=== PATIENT | female | born 1935 | race Caucasian/White ===

== ENCOUNTER → 2016-07-31 | Outpatient (CLI) | payer OTHER, MEDICARE ==
[~2016-07-31] MED LIST: ASPEC325 PO; CALCTAB5 PO; CETI10TA84 PO; CLB200 PO; CLC100 PO; CLTP PO; DIPH25CA37; HYDR-5688 PO; LEVO-217 PO; MULTTAB58 PO; NUTRCAP PO; OXYSR10 PO
--- NOTE | 2016-07-31 16:26 | MAMMOGRAPHY REPORT ---
BILATERAL DIGITAL SCREENING MAMMOGRAM WITH CAD: 07/31/2016 CLINICAL HISTORY: Routine screening. Patient has no complaints. TECHNIQUE: Current study was also evaluated with a Computer Aided Detection (CAD) system. Bilatera l CC and MLO views were obtained. COMPARISON: Comparison is made to exams dated: 07/28/2015 mammogram, 07/31/2014 ultrasound, 07/31/2014 mammogram, 07/27/2014 mammogram, 07/21/2013 mammogram, and 07/18/2012 mammogram - [facility]. BREAST COMPOSITION: There are scattered areas of fibroglandular density in both breasts. FINDINGS: No suspicious masses, calcifications, or areas of architectural distortion are noted in e ither breast. There has been no significant interval change compared to prior exams. IMPRESSION: ACR BI-RADS CATEGORY 1: NEGATIVE There is no mammographic evidence of malignancy. A 1 year screening mammogram is recommended. The p atient will receive written notification of the results. Approximately 10% of breast cancers are not detected with mammography. A negative mammographic repor t should not delay biopsy if a clinically suggestive mass is present. Lucy Malloy M.D. /:07/31/2016 15:24:06 Assistant Therapy Aide: Aissatou Gonzalez, [facility] letter sent: Normal 1/2 BI-RADS Code: ACR BI-RADS Category 1: Negative
== END | disposition home or self-care (01) ==
LOC: C.MAMM 12:54
PROVIDERS: ATTEND Family Medicine
DX: Z12.31 Encounter for screening mammogram for malignant neoplasm of breast (principal)

== ENCOUNTER 2017-04-17 10:15 | Inpatient (IN) | payer OTHER, MEDICARE ==
[~2017-04-17] VITALS: Ht 167.6 cm; Wt 89.4 kg
[2017-04-17] MEDS ORDERED: NITROGLYCERIN OINT 2% 1GM PACKET EXT ONE (10:45)
--- NOTE | 2017-04-17 10:54 | DIAGNOSTIC IMAGING REPORT ---
CHEST ONE VIEW PORTABLE CLINICAL HISTORY: Chest pain and cough COMPARISON STUDY: 05/21/2015 FINDINGS: The cardiac and mediastinal contours remain stable. There is linear left lower lobe atelectasis/scarring. There is no failure. There are no selective pleural effusions.[ IMPRESSION: No active disease in the chest. Electronically signed by: Nahun Freeman M.D. 04/17/2017 10:53 AM Dictated Date/Time: 04/17/2017 10:52 AM
[2017-04-17 10:55] LABS: BASO % 0.2 %; BASO ABS # 0.02 K/uL (0-0.2); COMPLETE YES; EOS % 0.7 %; HEMATOCRIT 42.7 % (37-47); IG% 0.4 %; LYMPH % 18.3 %; LYMPH ABS # 2.09 K/uL (1.2-3.4); MEAN CELL VOLUME 94.5 fL (80-100); MEAN CORPUSCULAR HEMOGLOBIN 31.6 pg (25-34); MEAN CORPUSCULAR HGB CONC 33.5 g/dl (32-36); MEAN PLATELET VOLUME 8.9 fL (7.4-10.4); NEUT % 70.4 %; PLATELET COUNT 193 K/uL (130-400); RED BLOOD COUNT 4.52 M/uL (4.2-5.4); WHITE BLOOD COUNT 11.43 K/uL (4.8-10.8)
[2017-04-17 11:05] LABS: PARTIAL THROMBOPLASTIN RATIO 0.9; PROTHROMBIN TIME (PATIENT) 10.2 SECONDS (9.0-12.0)
[2017-04-17 11:18] LABS: BUN/CREATININE RATIO 19.2 (10-20); CREATININE 0.87 mg/dl (0.60-1.20); POTASSIUM 3.7 mmol/L (3.5-5.1)
[2017-04-17] MEDS ORDERED: ACET-1311 PO (11:30)
[2017-04-17] MEDS ORDERED: CALC500C70 PO (11:30)
[2017-04-17] MEDS ORDERED: OPTIRAY 320 IV PRN (11:30)
[2017-04-17] MEDS ORDERED: CALCTAB5 (11:30)
[2017-04-17] MEDS ORDERED: LEVO25TA5 PO (11:31)
--- NOTE | 2017-04-17 11:55 | DIAGNOSTIC IMAGING REPORT ---
CT ANGIOGRAM OF THE CHEST CLINICAL HISTORY: Atypical chest pain. Back pain. Possible pulmonary embolism. Cough. COMPARISON STUDY: Chest x-ray dated 04/17/2017 TECHNIQUE: Following the IV administration of 72 mL of Optiray-320, CT angiogram of the thorax was performed from the thoracic inlet to the lung bases utilizing the pulmonary embolus protocol. Images are reviewed in the axial, sagittal, and coronal planes. IV contrast was administered without complication. MIP imaging was performed. A dose lowering technique was utilized adhering to the principles of ALARA. CT DOSE: 405.03 mGy.cm FINDINGS: Within the upper abdomen, there are several water attenuation hepatic lesions likely representing cysts. No pathologically enlarged axillary mediastinal or hilar lymph nodes were visualized. There was no evidence of thoracic aortic dilatation. There is a saddle pulmonary embolism. There is evidence for mild right ventricular strain. There is a large thrombus burden within the right lower lobe pulmonary artery branches. Filling defects are also visualized within the right middle lobe, right upper lobe, and left upper lobe pulmonary artery branches. There are trace bilateral pleural effusions There is no focal pulmonary consolidation. IMPRESSION: 1. Acute saddle pulmonary embolism. This finding was called to Dr. Tatum at 10:49 AM. 2. Trace bilateral pleural effusions Electronically signed by: Nahun Freeman M.D. 04/17/2017 11:53 AM Dictated Date/Time: 04/17/2017 11:48 AM
[2017-04-17] MEDS ORDERED: HEPARIN 25000 UNIT/500 ML D5W ONE (12:22)
[2017-04-17] MEDS ORDERED: HEPARIN SOD 5000 UNIT/0.5 ML CARP ONE (12:23)
[2017-04-17] MEDS ORDERED: MAGNESIUM HYDROXIDE SUSP 30 ML UDC PO PRN (13:00)
[2017-04-17] MEDS ORDERED: ONDANSETRON INJ 2 MG/ML 2 ML VIAL IV PRN (13:00)
[2017-04-17] MEDS ORDERED: ACETAMINOPHEN 325 MG TAB PO PRN ×2 (13:00)
[2017-04-17] MEDS ORDERED: CETIRIZINE HCL 10 MG TAB PO PRN (13:00)
[2017-04-17] MEDS ORDERED: POLYETHYLENE (MIRALAX) 17 GM PACK PO PRN (13:00)
[2017-04-17] MEDS ORDERED: ALUMINUM/MAGNESIUM/SIMETH (MAALOX MAX) 30 ML UDC PO PRN (13:00)
[2017-04-17 13:39] VITALS: Ht 167.6 cm; Wt 89.4 kg
--- NOTE | 2017-04-17 14:44 | History and Physical ---
History & Physical Date & Time of Service: Apr 17, 2017 at 14:10 Chief Complaint: Back Pain, Need More Testing Done Per 's Office Primary Care Physician: Elton Horton M.D. History of Present Illness Source: patient, family, parent, partner 81F with a PMHx of hip surgery, knee surgery and hypothyroidism p/w sharp chest pain on deep inspiration starting this AM. Pt has been feeling acutely unwell ( lethargic, diaphoretic and dyspneic) for the past few days and has been tired for the past 5-6 weeks. Pt also had a sharp chest pain a few days ago similar to todays pain that resolved on her own. Pt has never had pain like this before. Pt was also recently treated for cold symptoms with Amoxicillin which upset her stomach, pt stopped taking Amoxicillin after 5 days. Upon exam pt is resting comfortably in bed and states that her chest pain has resolved. He is on 2L via NC. ROS: +chills at night x few weeks, no fevers, no recent weight loss, denies any recent long trips, denies any long periods of immobility, denies any trauma to her extremities, reports chronic bilateral calf pain. Aside from chest ' nothing else hurts'. No cough, no hemoptysis, no bright red blood per rectum. Colonoscopy 2 years ago, also had a recent mammogram. No change in bowel movements. No vomiting. PMHx: Saw a manager client service for preop clearance, thinks she might have had an echocardiogram a long time ago. FMHx: Mom had blood clots and had to put a filter in. +'ve family history for breast and colon cancer. PSHx: hip surgery 5 years ago, knee surgery two years ago. Meds: Synthroid, daily baby ASA, stopped estrogen medication 2+ years ago. SHx: Never smoker, lives w . Past Medical/Surgical History Medical Problems: (1) Hypothyroidism Status: Chronic Social History Smoking Status: Never Smoker Marital Status: Housing status: lives with family Immunizations History of Influenza Vaccine: No Influenza Vaccine Date: Apr 21, 2012 History of Tetanus Vaccine?: Yes Tetanus Immunization Date: Apr 18, 2010 History of Pneumococcal: Yes Pneumococcal Date: Apr 18, 2005 History of Hepatitis B Vaccine: No Multi-Drug Resistant Organisms History of MDRO: No Allergies Coded Allergies: Amitriptyline (Verified Allergy, Unknown, FLUSHING, SWEATING, breasts swollen, 04/17/17) Statins (Verified Allergy, Unknown, myalgias, 04/17/17) Valacyclovir (Verified Allergy, Unknown, myalgias, 04/17/17) Gabapentin (Verified Adverse Reaction, Unknown, fatigue;leg swelling and vision changes, 04/17/17) Home Medications Scheduled Aspirin (Aspirin), 325 MG PO BID Calcium/Vitamin D (Os-Aj 500 Plus D), 1 TAB PO DAILY Celecoxib (Celebrex), 200 MG PO BID Levothyroxine Sodium (Levothyroxine Sodium), 1 TAB PO DAILY Multiple Vitamin (Multivitamin), 1 TAB PO DAILY Nutritional Supplements (Antioxidant Formula), 1 CAP PO DAILY Scheduled PRN Cetirizine (Zyrtec), 5-10 MG PO HS PRN for PRN Miscellaneous Medications Acetaminophen (Tylenol), 325 MG PO Calcium Carbonate (Caltrate 600) Review of Systems Constitutional: + chills, + sweats, + fatigue, No fever, No weight loss, No weakness ENT: No hearing loss Respiratory: + shortness of breath, + dyspnea on exertion, No cough, No sputum , No wheezing, No hemoptysis Abdomen: No pain, No nausea, No vomiting, No diarrhea, No constipation, No GI bleeding Musculoskeletal: No joint pain Genitourinary - Female: No dysuria Neurologic: No memory loss, No numbness/tingling Psychiatric: No depression symptoms Physical Exam Vital Signs Date Time Temp Pulse Resp B/P (MAP) Pulse Ox O2 Delivery O2 Flow Rate FiO2 04/17/17 13:39 Nasal Cannula 2.0 04/17/17 13:13 77 16 165/100 97 Nasal Cannula 2.0 04/17/17 13:04 71 04/17/17 12:33 75 16 191/97 04/17/17 11:14 81 16 159/109 95 Room Air 04/17/17 10:28 89 04/17/17 10: 36.6 114 18 177/93 99 Room Air Partial Rebreather General Appearance: WD/WN, no apparent distress, + obese, + pertinent finding ( pt is on 2LNC) Head: normocephalic Eyes: normal inspection, PERRL Neck: supple Respiratory/Chest: chest non-tender, lungs clear, normal breath sounds, no respiratory distress, no accessory muscle use Cardiovascular: regular rate, rhythm, no gallop, no JVD, no murmur, normal peripheral pulses Abdomen/GI: normal bowel sounds, non tender, soft, no organomegaly Back: normal inspection, no CVA tenderness Extremities/Musculoskelatal: + calf tenderness (bilateral) Neurologic/Psych: micro lab analyst II-XII nml as tested, no motor/sensory deficits, alert, normal mood/affect, oriented x 3 Skin: no rash Diagnostics Laboratory Results Results Past 24 Hours Test 04/17/17 10:43 04/17/17 10:47 Range/Units White Blood Count 11.43 4.8-10.8 K/uL Red Blood Count 4.52 4.2-5.4 M/uL Hemoglobin 14.3 12.0-16.0 g/dL Hematocrit 42.7 37-47 % Mean Corpuscular Volume 94.5 80-100 fL Mean Corpuscular Hemoglobin 31.6 25-34 pg Mean Corpuscular Hemoglobin Concent 33.5 32-36 g/dl Platelet Count 193 130-400 K/uL Mean Platelet Volume 8.9 7.4-10.4 fL Neutrophils (%) (Auto) 70.4 % Lymphocytes (%) (Auto) 18.3 % Monocytes (%) (Auto) 10.0 % Eosinophils (%) (Auto) 0.7 % Basophils (%) (Auto) 0.2 % Neutrophils # (Auto) 8.05 1.4-6.5 K/uL Lymphocytes # (Auto) 2.09 1.2-3.4 K/uL Monocytes # (Auto) 1.14 0.11-0.59 K/uL Eosinophils # (Auto) 0.08 0-0.5 K/uL Basophils # (Auto) 0.02 0-0.2 K/uL RDW Standard Deviation 55.8 36.4-46.3 fL RDW Coefficient of Variation 16.0 11.5-14.5 % Immature Granulocyte % (Auto) 0.4 % Immature Granulocyte # (Auto) 0.05 0.00-0.02 K/uL Prothrombin Time 10.2 9.0-12.0 SECONDS Prothromb Time International Ratio 1.0 0.9-1.1 Activated Partial Thromboplast Time 24.6 21.0-31.0 SECONDS Partial Thromboplastin Ratio 0.9 Sodium Level 141 136-145 mmol/L Potassium Level 3.7 3.5-5.1 mmol/L Chloride Level 109 98-107 mmol/L Carbon Dioxide Level 26 21-32 mmol/L Anion Gap 6.0 3-11 mmol/L Blood Urea Nitrogen 17 7-18 mg/dl Creatinine 0.87 0.60-1.20 mg/dl Est Creatinine Clear Calc Drug Dose 59.2 ml/min Estimated GFR () 73.4 Estimated GFR (Non- 63.4 BUN/Creatinine Ratio 19.2 10-20 Random Glucose 97 70-99 mg/dl Calcium Level 9.0 8.5-10.1 mg/dl Bedside Troponin I 0.040 0-0.045 ng/ml Microbiology Results 04/17/17 Blood Culture, Received Pending Diagnostic Radiology CT ANGIOGRAM OF THE CHEST CLINICAL HISTORY: Atypical chest pain. Back pain. Possible pulmonary embolism. Cough. COMPARISON STUDY: Chest x-ray dated 04/17/2017 TECHNIQUE: Following the IV administration of 72 mL of Optiray-320, CT angiogram of the thorax was performed from the thoracic inlet to the lung bases utilizing the pulmonary embolus protocol. Images are reviewed in the axial, sagittal, and coronal planes. IV contrast was administered without complication. MIP imaging was performed. A dose lowering technique was utilized adhering to the principles of ALARA. CT DOSE: 405.03 mGy.cm FINDINGS: Within the upper abdomen, there are several water attenuation hepatic lesions likely representing cysts. No pathologically enlarged axillary mediastinal or hilar lymph nodes were visualized. There was no evidence of thoracic aortic dilatation. There is a saddle pulmonary embolism. There is evidence for mild right ventricular strain. There is a large thrombus burden within the right lower lobe pulmonary artery branches. Filling defects are also visualized within the right middle lobe, right upper lobe, and left upper lobe pulmonary artery branches. There are trace bilateral pleural effusions There is no focal pulmonary consolidation. IMPRESSION: 1. Acute saddle pulmonary embolism. This finding was called to Dr. Tatum at 10:49 AM. 2. Trace bilateral pleural effusions CHEST ONE VIEW PORTABLE CLINICAL HISTORY: Chest pain and cough COMPARISON STUDY: 05/21/2015 FINDINGS: The cardiac and mediastinal contours remain stable. There is linear left lower lobe atelectasis/scarring. There is no failure. There are no selective pleural effusions.[ IMPRESSION: No active disease in the chest. EKG Normal sinus rhythm Possible Inferior infarct , age undetermined Cannot rule out Anterior infarct (cited on or before 18-FEB-2013) Abnormal ECG When compared with ECG of 21-MAY-2015 09:27, Nonspecific T wave abnormality, improved in Anterior leads Confirmed by ROBBIE MINOR ([id number]) on 04/17/2017 11:16:39 AM Impression Assessment and Plan 81F with PMHX of hypothyroidism with no recent surgeries p/w chest pain and was found to have a saddle embolis on CT Scan. Pt was started on a Heparin Drip and admitted to tele. VS are stable and Cardiopulmonary exam is grossly normal. Pt is at present on 2LNC. Aside from a FamHx of mother having blood clots and an IVC filter in place, this appears to be an unprovoked DVT. Pt has had a recent colonoscopy and mammogram, is a non smoker and has no systemic complaints except for recent chills. Neuro: * AAOx3 * Pt is not presently in any pain. * Pain control with Tylenol 650mg PO Q6H PRN. CV - * Chest pain has resolved, likely pleuritic 2/2 to PE. * Does not see a manager client service regularly. Post Op cardiology consult in 2012 for palpitations, no acute findings were found. * Last echo was in 2002 which was grossly normal. * EKG showed no acute pathology. * Trop was 0.04, after discussion with Attending we will not trend unless pain returns. * HTN: Pt has no h/o HTN, BP in the ER was high, 165/100, will continue to monitor, likely a stress response. * Continue ASA 81mg daily. Resp - * Acute saddle pulmonary embolism * Pt is saturating 98% on 2LNC. Has tender calves bilaterally. * Heparin Drip. * In my assessment pt is hemodynamically stable, no indicated for clot busting meds or thrombectomy. * Will monitor on tele. * Consider Echo if there is a concern for right heart strain. * Pt will need to be discharged on 3-6 months of AC. * Consider outpatient hypercoagulable studies. * Saw a consult for Thoracic Surgery by Dr. Madden, will cancel. * Allergies: c/w Cetirizine. Renal/ - * Creatinine is WNL. GI/Diet - * Regular Diet. Endo - * Hypothyroidism: Will continue home Synthroid dose of 25mcg daily. Will check TSH tomorrow AM. * HBA1C of 6.3 in 2011, BS of 97 on BMP * Electrolytes: Na+ 141 K+ 3.7 * Will check Mag and Phos in the AM. * Vit D Deficiency: Continue daily ca2+/Vit D combo med. Heme - * Hgb 14, Platelets 193 WNL. * DVT Proph: On Hep Drip. ID - * Afebrile, WBC - 11,000. * WBC is likely reactive, we will hold on ABx. MSK - * Out of bed as tolerated. * PT and OT on board. Social - Home AC regimen, appears to have good support, depending on PT and OT either DC to home or rehab. Dispo - Tele Full Code - Pt however does not want prolonged mechanical ventilation for an irreversible neurological process. Resident Physician Supervision Note: I interviewed and examined the patient. Discussed with Dr. Ledesma and agree with findings and plan as documented in the note. Any exceptions or clarifications are listed here: None Documented By: Balta Parks back pain. breathing OK. no other new complaints - HPI and ROS otherwise as above vitals noted nad breathing unlabored lungs clear no r/r/w good effort saddle embolus - ?venous stasis and fam hx clotting. stable. heparin --> likely NOAC. stable, otherwise as above Advanced Directives Existing Living Will: No Existing Power of Technical Support 1 Software Engineer: No Resident Involvement: Resident Care Provided Care Provided: Adult Hospital Medicine
[2017-04-17 16:00] VITALS: O2SAT 95
[2017-04-17 16:10] VITALS: BP 96/65; PULSE 77; TEMP 36.6; O2SAT 96
--- NOTE | 2017-04-17 16:17 | EMERGENCY ROOM VISIT NOTE ---
History Report prepared by Des: Roxanna Acuña Under the Supervision of: Dr. Phu Tatum M.D. First contact with patient: 10:28 Chief Complaint: BACK PAIN Stated Complaint: BACK PAIN, NEED MORE TESTING DONE PER 'S OFFICE History of Present Illness The patient is a 81 year old female who presents to the Emergency Room with complaints of an episode of chest pain beginning this morning at 7am when she woke up. The patient reports chest tightness and pain in her back. She rates her pain as a 5/10 in severity. Her pain is worsened with deep inspiration. She became diaphoretic with her pain and developed a headache as well. She still has some tightness in her chest and mid-upper back, but states that her symptoms have improved. The patient had a similar episode 3 days ago. She was not evaluated at that time and her symptoms resolved on their own. The patient states that she has been sick for the past 5 weeks with cold symptoms. She notes headaches, cough, and rhinorrhea. She saw her PCP for these symptoms last week and was placed on amoxicillin. The patient took this antibiotic for 5 days and stopped it because she developed a rash and thought that she was having a reaction to the medication. The patient denies fevers, vomiting, swelling to extremities, and any recent trauma or injury. She denies any recent surgery or immobilization. She has no pain in her legs other than some chronic issues due to her knee problems. She denies any significant cardiac history. Source of History: patient Onset: 7am Position: chest Symptom Intensity: 5/10 Quality: other (tightness) Timing: other (episode) Modifying Factors (Worsening): breathing (deep inspiration) Associated Symptoms: + headache, + diaphoresis, + cough, + back pain, No fevers, No vomiting Review of Systems See HPI for pertinent positives & negatives. A total of 10 systems reviewed and were otherwise negative. Past Medical & Surgical Medical Problems: (1) Hypothyroidism (2) Saddle embolism of pulmonary artery Surgical Problems: (1) S/P TKR (total knee replacement) Family History Non-pertinent due to advanced age. Social History Smoking Status: Never Smoker Smokeless Tobacco Use: No Alcohol Use: none Marital Status: Housing Status: lives with significant other Current/Historical Medications Scheduled Aspirin (Aspirin), 325 MG PO BID Calcium/Vitamin D (Os-Aj 500 Plus D), 1 TAB PO DAILY Celecoxib (Celebrex), 200 MG PO BID Levothyroxine Sodium (Levothyroxine Sodium), 1 TAB PO DAILY Multiple Vitamin (Multivitamin), 1 TAB PO DAILY Nutritional Supplements (Antioxidant Formula), 1 CAP PO DAILY Scheduled PRN Cetirizine (Zyrtec), 5-10 MG PO HS PRN for PRN Miscellaneous Medications Acetaminophen (Tylenol), 325 MG PO Calcium Carbonate (Caltrate 600) Allergies Coded Allergies: Amitriptyline (Verified Allergy, Unknown, FLUSHING, SWEATING, breasts swollen, 04/17/17) Statins (Verified Allergy, Unknown, myalgias, 04/17/17) Valacyclovir (Verified Allergy, Unknown, myalgias, 04/17/17) Gabapentin (Verified Adverse Reaction, Unknown, fatigue;leg swelling and vision changes, 04/17/17) Physical Exam Vital Signs Date Time Temp Pulse Resp B/P (MAP) Pulse Ox O2 Delivery O2 Flow Rate FiO2 04/17/17 14:40 70 16 161/94 95 Nasal Cannula 2.0 04/17/17 13:39 Nasal Cannula 2.0 04/17/17 13:13 77 16 165/100 97 Nasal Cannula 2.0 04/17/17 13:04 71 04/17/17 12:33 75 16 191/97 04/17/17 11:14 81 16 159/109 95 Room Air 04/17/17 10:28 89 04/17/17 10: 36.6 114 18 177/93 99 Room Air Partial Rebreather Physical Exam Constitutional: Vital signs reviewed. Eyes: Pupils are equal round reactive to light. Conjunctiva are noninjected. ENT: Pharynx is clear without erythema or exudate. Mucous membranes are moist. Neck supple without meningeal signs. Respiratory: Clear to auscultation bilaterally. Breath sounds are equal bilaterally. Cardiovascular: Regular rate and rhythm. No rubs or gallops. GI: Soft, nondistended and nontender. Bowel sounds are present. Musculoskeletal: No peripheral edema. No lower extremity tenderness. Integumentary: No cyanosis. Neurological: The patient is awake and alert. No focal deficits. Psychiatric: Normal affect. Medical Decision & Procedures ER Provider Diagnostic Interpretation: Radiology results as stated below per my review and the radiologist's interpretation: CHEST ONE VIEW PORTABLE CLINICAL HISTORY: Chest pain and cough COMPARISON STUDY: 05/21/2015 FINDINGS: The cardiac and mediastinal contours remain stable. There is linear left lower lobe atelectasis/scarring. There is no failure. There are no selective pleural effusions.[ IMPRESSION: No active disease in the chest. Electronically signed by: Nahun Freeman M.D. 04/17/2017 10:53 AM Dictated Date/Time: 04/17/2017 10:[address] ANGIOGRAM OF THE CHEST CLINICAL HISTORY: Atypical chest pain. Back pain. Possible pulmonary embolism. Cough. COMPARISON STUDY: Chest x-ray dated 04/17/2017 TECHNIQUE: Following the IV administration of 72 mL of Optiray-320, CT angiogram of the thorax was performed from the thoracic inlet to the lung bases utilizing the pulmonary embolus protocol. Images are reviewed in the axial, sagittal, and coronal planes. IV contrast was administered without complication. MIP imaging was performed. A dose lowering technique was utilized adhering to the principles of ALARA. CT DOSE: 405.03 mGy.cm FINDINGS: Within the upper abdomen, there are several water attenuation hepatic lesions likely representing cysts. No pathologically enlarged axillary mediastinal or hilar lymph nodes were visualized. There was no evidence of thoracic aortic dilatation. There is a saddle pulmonary embolism. There is evidence for mild right ventricular strain. There is a large thrombus burden within the right lower lobe pulmonary artery branches. Filling defects are also visualized within the right middle lobe, right upper lobe, and left upper lobe pulmonary artery branches. There are trace bilateral pleural effusions There is no focal pulmonary consolidation. IMPRESSION: 1. Acute saddle pulmonary embolism. This finding was called to Dr. Tatum at 10:49 AM. 2. Trace bilateral pleural effusions Electronically signed by: Nahun Freeman M.D. 04/17/2017 11:53 AM Dictated Date/Time: 04/17/2017 11:48 AM Laboratory Results 04/17/17 10:43 Red Blood Count 4.52, Mean Corpuscular Volume 94.5, Mean Corpuscular Hemoglobin 31.6, Mean Corpuscular Hemoglobin Concent 33.5, Mean Platelet Volume 8.9, Neutrophils (%) (Auto) 70.4, Lymphocytes (%) (Auto) 18.3, Monocytes (%) (Auto) 10.0, Eosinophils (%) (Auto) 0.7, Basophils (%) (Auto) 0.2, Neutrophils # (Auto ) 8.05, Lymphocytes # (Auto) 2.09, Monocytes # (Auto) 1.14, Eosinophils # (Auto ) 0.08, Basophils # (Auto) 0.02 04/17/17 10:43 Test 04/17/17 10:43 04/17/17 10:47 White Blood Count 11.43 K/uL (4.8-10.8) Red Blood Count 4.52 M/uL (4.2-5.4) Hemoglobin 14.3 g/dL (12.0-16.0) Hematocrit 42.7 % (37-47) Mean Corpuscular Volume 94.5 fL (80-100) Mean Corpuscular Hemoglobin 31.6 pg (25-34) Mean Corpuscular Hemoglobin Concent 33.5 g/dl (32-36) Platelet Count 193 K/uL (130-400) Mean Platelet Volume 8.9 fL (7.4-10.4) Neutrophils (%) (Auto) 70.4 % Lymphocytes (%) (Auto) 18.3 % Monocytes (%) (Auto) 10.0 % Eosinophils (%) (Auto) 0.7 % Basophils (%) (Auto) 0.2 % Neutrophils # (Auto) 8.05 K/uL (1.4-6.5) Lymphocytes # (Auto) 2.09 K/uL (1.2-3.4) Monocytes # (Auto) 1.14 K/uL (0.11-0.59) Eosinophils # (Auto) 0.08 K/uL (0-0.5) Basophils # (Auto) 0.02 K/uL (0-0.2) RDW Standard Deviation 55.8 fL (36.4-46.3) RDW Coefficient of Variation 16.0 % (11.5-14.5) Immature Granulocyte % (Auto) 0.4 % Immature Granulocyte # (Auto) 0.05 K/uL (0.00-0.02) Prothrombin Time 10.2 SECONDS (9.0-12.0) Prothromb Time International Ratio 1.0 (0.9-1.1) Activated Partial Thromboplast Time 24.6 SECONDS (21.0-31.0) Partial Thromboplastin Ratio 0.9 Anion Gap 6.0 mmol/L (3-11) Est Creatinine Clear Calc Drug Dose 59.2 ml/min Estimated GFR () 73.4 Estimated GFR (Non- 63.4 BUN/Creatinine Ratio 19.2 (10-20) Calcium Level 9.0 mg/dl (8.5-10.1) Bedside Troponin I 0.040 ng/ml (0-0.045) Laboratory results as reviewed by me. Medications Administered Medications (Trade) Dose Ordered Sig/Mallory Route Start Time Stop Time Status Last Admin Dose Admin Nitroglycerin (Nitroglycerin 2% Oint) 0.5 inch NOW ONCE EXT 04/17/17 10:45 04/17/17 10:46 DC 04/17/17 10:56 0.5 INCH Heparin Sodium/ Dextrose (Heparin 25,000 Unit/500ml D5W) 25,000 unit STK-MED ONCE .ROUTE 04/17/17 12:22 04/17/17 12:23 DC 04/17/17 12:22 25,000 UNIT Heparin Sodium (Porcine) (Heparin Sq 5000 Unit/0.5ml) 10,000 unit STK-MED ONCE .ROUTE 04/17/17 12:23 04/17/17 12:24 DC 04/17/17 12:30 6,000 UNIT ECG Indication: chest pain Rate (beats per minute): 82 Rhythm: normal sinus Findings: Q waves (leads 3 and AVF), no ectopy ED Course 1028: The patient was evaluated in room A11B. A complete history and physical exam was performed. 1045: Nitroglycerin 0.5 inch EXT 1119: Upon reevaluation the patient's chest pain has improved slightly. She agreed to a CT scan of her chest. 1150: I spoke with Dr. Freeman, the radiologist regarding the patient's CT results. 1152: I updated the patient on the results of her chest CT. She is still complaining of slight chest discomfort. I discussed the risks of anticoagulation with the patient. She denies any history of GI bleeding. She is complaining of a headache from the nitro, so I removed the nitro. 1157: I discussed the case with Dr. Borja of cardiothoracic surgery. He spoke with the electron beam machine welder setter and Dr. Pagan of pulmonology and called me back. They agreed to keep the patient in the ICU and recommended heparin and not TPA. 1209: I reassessed the patient at this time. I discussed the results and treatment plan with the patient. I answered all pertaining questions that she had. She expressed understanding and verbalized agreement. 1212: Heparin Sodium/Dextrose 1214: I spoke with Dr. Parks. We discussed the patient's case. The patient will be evaluated by the [facility] for further management. 1303: I checked on the patient. Her vital signs are stable and she is getting heparin. Medical Decision This is a 81-year-old female who presents with chest pain and back pain. Differential diagnosis includes unstable angina, UT, GERD, pneumonia, pulmonary embolism. I did perform a limited focused review of portions of the patient's old chart on the electronic medical record. The patient has had no recent pertinent visits to this hospital. I did evaluate the patient as noted above. The patient is presenting with chest tightness which started this morning. She has no similar episode 2 days ago which resolved on its on. She was diaphoretic when it occurred with some shortness of breath. She is currently having some mild chest pain. She also complains of pain in her back which she states is worse when she takes deep breath. She has had that for about a week. IV access was established. The patient was placed on a continuous radiation monitor. Her blood pressure is significantly elevated. I did treat the patient with nitroglycerin paste. I did order and personally review the patient's 12-lead EKG and chest x-ray as described above. I did order and review the patient's blood work as noted in the electronic medical record. Her troponin is negative. I did reassess the patient. She has some very slight improvement of her chest pain but continues to have the tightness as well as pain in her back. I was concerned about the possibility of pulmonary embolism and so I did discuss getting a CT with her. I did order a CT of the chest. I did review the images myself as well as the radiology report as described above. The patient does have a saddle embolism. I did discuss the test results with the patient. I did discuss the case with Dr. Borja. He did speak to the ICU doctor and tool supervisor. They felt that the patient could be managed in the ICU and did not require transfer. He recommended IV heparin. I did start patient on IV heparin after discussing risks and benefits with her. I did discuss case with Dr. Parks. The patient was admitted to the ICU. Medication Reconcilliation Current Medication List: was personally reviewed by me Blood Pressure Screening Patient's blood pressure: Elevated blood pressure Blood pressure disposition: Referred to PCP Consults Time Called: 1150 Consulting Physician: Dr. Freeman Returned Call: [address] Freeman, the radiologist regarding the patient's CT results. Additional Consults: Time Called: 1155 Consulted Physician: Dr. Borja Returned Call: 1157 Additional Comments: I discussed the case with Dr. Borja of cardiothoracic surgery. He spoke with the electron beam machine welder setter and Dr. Pagan of pulmonology and called me back. They agreed to keep the patient in the ICU and recommended heparin and not TPA. Time Called: 1211 Consulted Physician: Dr. Parks Returned Call: 1214 Additional Comments: I spoke with Dr. Parks. We discussed the patients case. The patient will be evaluated by the [facility] for further management. Impression Primary Impression: Saddle embolus Critical Care I have personally spent 35 minutes of critical care time in the direct management of this patient. This includes bedside care, interpretation of diagnostic studies, and testing, discussion with consultants, patient, and family members, and other required patient management activities. This 35 minutes is in excess of all separately billable procedures. Scribe Attestation The scribe's documentation has been prepared under my direct and personally reviewed by me in its entirety. I confirm that the note above accurately reflects all work, treatment, procedures, and medical decision making performed by me. Departure Information Dispostion Being Evaluated By Hospitalist Elton Garcia M.D. (PCP) Patient Instructions My [facility]
[2017-04-17 17:30] VITALS: BP 139/84; PULSE 88
[2017-04-17] MEDS: HEPARIN 25,000 UNIT/500ML D5W 500 ML IV PRN (17:33)
[2017-04-17 18:58] LABS: PARTIAL THROMBOPLASTIN RATIO 2.1
[2017-04-17 19:30] VITALS: BP 155/90; PULSE 67; TEMP 36.7; O2SAT 95
[2017-04-17 20:00] VITALS: O2SAT 96
[2017-04-17] MEDS ORDERED: ASPIRIN 325 MG ECTAB PO SCH (21:00)
[2017-04-17] MEDS: ACETAMINOPHEN 325 MG TAB PO PRN (21:09)
[2017-04-17 23:42] VITALS: BP 146/86; PULSE 67; TEMP 37.1; O2SAT 95
[2017-04-18] VITALS (8 sets, daily range): BP systolic 133–151; BP diastolic 83–90; PULSE 64–95; TEMP 36.6–37.6; O2SAT 92–98
[2017-04-18 06:07] LABS: HEMATOCRIT 41.4 % (37-47); MEAN CELL VOLUME 94.7 fL (80-100); MEAN CORPUSCULAR HEMOGLOBIN 31.8 pg (25-34); MEAN CORPUSCULAR HGB CONC 33.6 g/dl (32-36); MEAN PLATELET VOLUME 8.9 fL (7.4-10.4); PLATELET COUNT 187 K/uL (130-400); RED BLOOD COUNT 4.37 M/uL (4.2-5.4); WHITE BLOOD COUNT 10.46 K/uL (4.8-10.8)
[2017-04-18 06:32] LABS: BUN/CREATININE RATIO 20.4 (10-20); CALCIUM 8.6 mg/dl (8.5-10.1); CREATININE 0.66 mg/dl (0.60-1.20); POTASSIUM 3.8 mmol/L (3.5-5.1)
[2017-04-18] MEDS: LEVOTHYROXINE 25 MCG TAB PO SCH (06:32)
[2017-04-18 06:35] LABS: PARTIAL THROMBOPLASTIN RATIO 3.7
[2017-04-18] MEDS: CALCIUM 600MG + VIT D 400 IU TAB PO SCH (08:38)
[2017-04-18] MEDS: MULTIVITAMIN TAB PO SCH (08:38)
[2017-04-18] MEDS: ASPIRIN 81 MG ECTAB PO SCH (08:39)
[2017-04-18] MEDS ORDERED: NUTRITIONAL SUPPLEMENTS PO SCH (09:00)
[2017-04-18] MEDS: HEPARIN 25,000 UNIT/500ML D5W 500 ML IV PRN (09:18)
[2017-04-18] MEDS: SODIUM CHLORIDE 0.9% 1000ML 1,000 ML IV SCH (14:10)
[2017-04-18 14:38] LABS: PARTIAL THROMBOPLASTIN RATIO 2.1
--- NOTE | 2017-04-18 14:46 | Hospitalist Progress Note ---
Hospitalist Progress Note Date of Service Apr 18, 2017. (Yana Mak ., DAISY) Subjective Pt evaluation today including: conversation w/ patient, physical exam, chart review, lab review, review of inpatient medication list Ms. Ashford is in good spirits. She feels some sob but is comfortable with 2L NC while sitting in bed. Her chest pain has largely resolved. ROS Constitutional: no chills, aches, sweats or fever Respiratory: no sob,cough, sputum, or wheezing Cardiac: no chest pain, palpitations, edema, orthopnea or lightheadedness GI: no abdominal pain, nausea, vomiting, diarrhea or constipation : no dysuria or hesitancy Extremities: no joint pain or weakness Skin: no rash (Yana Mak CRNP) Medications Medications Administered Medications (Trade) Dose Ordered Sig/Mallory Route Start Time Stop Time Status Last Admin Dose Admin Nitroglycerin (Nitroglycerin 2% Oint) 0.5 inch NOW ONCE EXT 04/17/17 10:45 04/17/17 10:46 DC 04/17/17 10:56 0.5 INCH Heparin Sodium/ Dextrose (Heparin 25,000 Unit/500ml D5W) 25,000 unit STK-MED ONCE .ROUTE 04/17/17 12:22 04/17/17 12:23 DC 04/17/17 12:22 25,000 UNIT Heparin Sodium (Porcine) (Heparin Sq 5000 Unit/0.5ml) 10,000 unit STK-MED ONCE .ROUTE 04/17/17 12:23 04/17/17 12:24 DC 04/17/17 12:30 6,000 UNIT Calcium/Vitamin D (Caltrate Plus Tab) 1 tab DAILY PO 04/18/17 09:00 05/18/17 08:59 04/18/17 08:38 1 TAB Levothyroxine Sodium (Synthroid Tab) 25 mcg DAILYBB PO 04/18/17 06:00 05/18/17 06:59 04/18/17 06:32 25 MCG Multivitamins (Multivitamin Tab) 1 tab DAILY PO 04/18/17 09:00 05/18/17 08:59 04/18/17 08:38 1 TAB Aspirin (Ecotrin Tab) 81 mg QAM PO 04/18/17 09:00 05/18/17 08:59 04/18/17 08:39 81 MG Heparin Sodium/ Dextrose 500 ml @ 23 mls/hr [id number] PRN IV 04/17/17 17:15 05/17/17 17:14 04/18/17 09:18 23 MLS/HR Acetaminophen (Tylenol Tab) 650 mg Q4H PRN PO 04/17/17 20:30 05/17/17 20:29 04/17/17 21:09 650 MG Sodium Chloride 1,000 ml @ 75 mls/hr [id number] IV 04/18/17 14:15 05/18/17 14:14 04/18/17 14:10 75 MLS/HR (Yana Mak, DAISY) Objective Vital Signs Date Time Temp Pulse Resp B/P (MAP) Pulse Ox O2 Delivery O2 Flow Rate FiO2 04/18/17 12:00 Nasal Cannula 2.0 04/18/17 10:46 37.3 73 18 144/83 (103) 95 Room Air 04/18/17 08:20 36.8 85 16 139/85 (103) 97 Nasal Cannula 2.0 04/18/17 08:00 Nasal Cannula 2.0 04/18/17 04:01 36.6 64 16 151/86 (107) 98 Nasal Cannula 1.5 04/18/17 04:00 Nasal Cannula 2.0 04/17/17 23:59 Nasal Cannula 2.0 04/17/17 23:42 37.1 67 18 146/86 (106) 95 Nasal Cannula 1.5 04/17/17 20:00 96 Nasal Cannula 2.0 04/17/17 19:30 36.7 67 18 155/90 (111) 95 Nasal Cannula 2.0 04/17/17 17:30 88 139/84 (102) 04/17/17 16:10 36.6 77 17 96/65 (75) 96 Nasal Cannula 2.0 04/17/17 16:00 95 Nasal Cannula 2.0 04/17/17 14:40 70 16 161/94 95 Nasal Cannula 2.0 (Yana Mak, SUPPORT SPECIALIST) Physical Exam Notes: General: no distress Eyes: normal inspection, PERLL Respiratory: chest non tender, clear to auscultation, normal breath sounds, no respiratory distress, no accessory muscle use Cardiac: regular rate and rhythm, no rub or gallop, no murmur, no edema, no jvd GI/: active bowel sounds, no abd pain or tenderness, soft, non distended Extremities: normal range of motion, normal strength, non tender Neuro/Psych: alert and oriented x 3, normal mood and affect Skin: normal color, dry (Yana Mak CRNP) Laboratory Results Last 24 Hours Test 04/17/17 18:29 04/18/17 05:52 04/18/17 14:09 Activated Partial Thromboplast Time 54.1 SECONDS 95.9 SECONDS Partial Thromboplastin Ratio 2.1 3.7 White Blood Count 10.46 K/uL Red Blood Count 4.37 M/uL Hemoglobin 13.9 g/dL Hematocrit 41.4 % Mean Corpuscular Volume 94.7 fL Mean Corpuscular Hemoglobin 31.8 pg Mean Corpuscular Hemoglobin Concent 33.6 g/dl RDW Standard Deviation 54.5 fL RDW Coefficient of Variation 15.7 % Platelet Count 187 K/uL Mean Platelet Volume 8.9 fL Sodium Level 141 mmol/L Potassium Level 3.8 mmol/L Chloride Level 110 mmol/L Carbon Dioxide Level 26 mmol/L Anion Gap 5.0 mmol/L Blood Urea Nitrogen 13 mg/dl Creatinine 0.66 mg/dl Est Creatinine Clear Calc Drug Dose 77.8 ml/min Estimated GFR () 97.4 Estimated GFR (Non- 84.0 BUN/Creatinine Ratio 20.4 Random Glucose 97 mg/dl Calcium Level 8.6 mg/dl Troponin I < 0.015 ng/ml (Yana Mak CRNP) Assessment and Plan 81F with PMHX of hypothyroidism with no recent surgeries p/w chest pain and was found to have a saddle embolis on CT Scan. Pt was started on a Heparin Drip and admitted to [facility]. VS are stable and cardiopulmonary exam is grossly normal. Pt is at present on 2LNC. Aside from a FamHx of mother having blood clots and an IVC filter in place, and son with post surgery DVTs, this appears to be an unprovoked DVT. Pt has had a recent colonoscopy and mammogram, is a non smoker and has no systemic complaints except for recent chills. Saddle Embolus: - Echo - Heparin infusion - no indication for thrombolytics at this time - titrate O2 - monitor on telemetry - outpatient hypercoagulable studies Chest Pain: - Chest pain has resolved, likely pleuritic 2/2 to PE. - EKG showed no acute pathology. - Trop was 0.04 - Continue ASA 81mg daily. Seasonal allergies - continue cetirizine Hypothyroidism: - continue home Synthroid dose of 25mcg daily. DVT prophylaxis - heparin drip Full Code - Pt however does not want prolonged mechanical ventilation for an irreversible neurological process. (Yana Mak ., DAISY) Attending Attestation: Pt seen/examined, chart reviewed, care plan d/w SUPPORT SPECIALISTGRACE Mak. I agree w/ the soto components of her documentation. Pt w/o any major complaints except for cramps in legs, worse on left. This is a chronic issue but was MUCH worse in the last 2 weeks. This was about the time she developed pleuritic chest pain, back pain, and dyspnea. Traveled to [place] about 4 weeks ago. Symptoms began 2 weeks ago. Mother, son, and daughter - all w/ blood clots. VSS afebrile gen - nad heart - mildly tachy, s1, s2 lungs - CTA b/l abd - soft, NT ext - left leg is much larger than right leg, no palpable cords, no edema, pulses 2+ b/l A/P: extensive VTE event with numerous right-sided PEs and saddle embolus. likely had embolic events over 2-week period hence her stability. risk factors - probable genetic factor, possible travel (to [place]); cannot exclude underlying malignancy (occult). continue heparin. spoke with Dr. Cervantes from coumadin clinic - preference is likely lovenox bridge w/ coumadin at discharge. will start coumadin today - 5mg x 1 with daily coags. hold on hypercoagulable w/u - will not cell changer. suspect she may need lifelong coumadin. dopplers of legs ordered. echo pending. due to tachycardia and preload dependency start NS at 75cc/hr. watch 1 more night on tele - if stable - then med/surg tomorrow daughter updated Darrel PACHECO MD (Vishal Pacheco MD)
[2017-04-18] MEDS ORDERED: WARFARIN SOD 5 MG TAB PO ONE (18:45)
--- NOTE | 2017-04-18 19:26 | ECHOCARDIOGRAM REPORT ---
*NOTICE TO RECEIVING LIBERTARIAN AGENCY This information is strictly Confidential and protected under [place] law. [place] law prohibits you from making any further disclosure of this information unless further disclosure is expressly permitted by the written consent of the person to whom it pertains or is authorized by law. A general authorization for the release of medical or other information is not sufficient for this purpose. Hospital accepts no responsibility if the information is made available to any other person, INCLUDING THE PATIENT. Interpretation Summary * Name: MARISELA WILKINSON Study Date: 04/18/2017 03:28 PM BP: 134/89 mmHg * Patient Location: C.2T\S\S241\S\2 HR: 86 * : 1935 (M/d/yyyy) Gender: Female Height: 66 in * Age: 81 yrs Ethnicity: CA Weight: 197 lb * Ordering Physician: Vishal Pacheco * Referring Physician: Elton Horton * Performed By: Lilliana Escobar RDCS * * BSA: 2.0 m2 * -- Conclusions -- * 1. Normal left ventricular size and systolic function. EF 55-60%. No regional wall motion abnormalities. Mild concentric left ventricular hypertrophy. Type 1 diastolic dysfunction. * 2. No significant valvular abnormalities visualized. * 3. Normal estimated right ventricular systolic pressure. * 4. No prior study available for comparison. Procedure Details * A complete two-dimensional transthoracic echocardiogram was performed (2D, M-mode, Doppler and color flow Doppler). Left Ventricle * Normal left ventricular size and systolic function. EF 55-60%. No regional wall motion abnormalities. Mild concentric left ventricular hypertrophy. Type 1 diastolic dysfunction. Right Ventricle * The right ventricle is normal in size and function. Atria * The left atrial size is normal. * Right atrial size is normal. * There is no evidence of atrial septal defect, but resolution does not allow assessment for a patent foramen ovale. Mitral Valve * The mitral valve is grossly normal. * There is no mitral valve stenosis. * There is trace mitral regurgitation. Tricuspid Valve * The tricuspid valve is not well visualized, but is grossly normal. * There is no tricuspid stenosis. * There is trace tricuspid regurgitation. Aortic Valve * The aortic valve is trileaflet. * No hemodynamically significant valvular aortic stenosis. * No aortic regurgitation is present. Pulmonic Valve * The pulmonary valve is inadequately visualized, but the Doppler data is adequate for interpretation. * There is no pulmonic valvular stenosis. * There is no significant pulmonary regurgitation. Great Vessels * The aortic root is normal size. Pericardium/Pleural * There is no pericardial effusion. Great Vessels * Normal inferior vena cava size and collapsability with sniff indicates a normal right atrial pressure of 3 mmHg MMode 2D Measurements and Calculations IVSd 1.3 cm IVSs 1.9 cm LVIDd 4.1 cm LVIDs 2.8 cm LVPWd 1.3 cm LVPWs 1.9 cm IVS/LVPW 1.0 FS 32.6 % EDV(Teich) 73.7 ml ESV(Teich) 28.4 ml EF(Teich) 61.5 % EDV(cubed) 68.4 ml ESV(cubed) 20.9 ml EF(cubed) 69.4 % % IVS thick 39.7 % % LVPW thick 42.9 % LV mass(C)d 197.9 grams LV mass(C)dI 99.6 grams/m\S\2 LV mass(C)s 211.0 grams LV mass(C)sI 106.2 grams/m\S\2 SV(Teich) 45.3 ml SI(Teich) 22.8 ml/m\S\2 SV(cubed) 47.4 ml SI(cubed) 23.9 ml/m\S\2 Ao root diam 3.3 cm Ao root area 8.5 cm\S\2 LA dimension 3.3 cm LA/Ao 1.0 LVAd ap4 29.2 cm\S\2 LVLd ap4 7.9 cm EDV(MOD-sp4) 89.7 ml EDV(sp4-el) 92.0 ml LVAs ap4 17.6 cm\S\2 LVLs ap4 6.7 cm ESV(MOD-sp4) 40.6 ml ESV(sp4-el) 39.1 ml EF(MOD-sp4) 54.7 % EF(sp4-el) 57.5 % LVAd ap2 24.0 cm\S\2 LVLd ap2 7.4 cm EDV(MOD-sp2) 67.1 ml EDV(sp2-el) 65.9 ml LVAs ap2 14.6 cm\S\2 LVLs ap2 6.4 cm ESV(MOD-sp2) 29.8 ml ESV(sp2-el) 28.3 ml EF(MOD-sp2) 55.5 % EF(sp2-el) 57.0 % LVLd %diff -3.58 % EDV(MOD-bp) 79.8 ml LVLs %diff -3.40 % ESV(MOD-bp) 33.2 ml EF(MOD-bp) 58.4 % SV(MOD-sp4) 49.1 ml SI(MOD-sp4) 24.7 ml/m\S\2 SV(MOD-sp2) 37.2 ml SI(MOD-sp2) 18.7 ml/m\S\2 SV(MOD-bp) 46.6 ml SI(MOD-bp) 23.5 ml/m\S\2 SV(sp4-el) 52.9 ml SI(sp4-el) 26.6 ml/m\S\2 SV(sp2-el) 37.5 ml SI(sp2-el) 18.9 ml/m\S\2 Doppler Measurements and Calculations MV E max sarai 67.9 cm/sec MV A max sarai 99.0 cm/sec MV E/A 0.69 MV dec time 0.17 sec Ao V2 max 138.7 cm/sec Ao max PG 7.7 mmHg Ao max PG (full) 3.3 mmHg LV V1 max PG 4.4 mmHg LV V1 max 104.3 cm/sec TR max sarai 230.8 cm/sec RVSP(TR) 24.3 mmHg RAP systole 3.0 mmHg
--- NOTE | 2017-04-18 21:55 | DIAGNOSTIC IMAGING REPORT ---
VENOUS DOPPLER LWR EXT BILA HISTORY: Dyspnea saddle PE, eval for DVT COMPARISON STUDY: 09/29/2014 FINDINGS: Acute deep venous thrombosis within the left common femoral vein, popliteal vein, as well as peroneal veins. No significant thrombus within the right leg. IMPRESSION: Acute deep venous thrombosis in the left leg from common femoral vein through the small venous structures of the lower leg The above report was generated using voice recognition software. It may contain grammatical, syntax or spelling errors. Electronically signed by: Josh Villanueva M.D. 04/18/2017 9:54 PM Dictated Date/Time: 04/18/2017 9:52 PM
[2017-04-19] MEDS: SODIUM CHLORIDE 0.9% 1000ML 1,000 ML IV SCH (03:17)
[2017-04-19 04:00] VITALS: BP 146/87; PULSE 89; TEMP 36.7; O2SAT 91
[2017-04-19] MEDS: LEVOTHYROXINE 25 MCG TAB PO SCH (05:27)
[2017-04-19] MEDS: HEPARIN 25,000 UNIT/500ML D5W 500 ML IV PRN (05:27)
[2017-04-19 05:47] LABS: HEMATOCRIT 38.8 % (37-47); MEAN CELL VOLUME 94.9 fL (80-100); MEAN CORPUSCULAR HEMOGLOBIN 31.8 pg (25-34); MEAN CORPUSCULAR HGB CONC 33.5 g/dl (32-36); MEAN PLATELET VOLUME 9.2 fL (7.4-10.4); PLATELET COUNT 214 K/uL (130-400); RED BLOOD COUNT 4.09 M/uL (4.2-5.4); WHITE BLOOD COUNT 11.03 K/uL (4.8-10.8)
[2017-04-19 06:15] LABS: PARTIAL THROMBOPLASTIN RATIO 2.2
[2017-04-19 06:18] LABS: BUN/CREATININE RATIO 18.5 (10-20); CALCIUM 8.2 mg/dl (8.5-10.1); CREATININE 0.64 mg/dl (0.60-1.20); POTASSIUM 3.7 mmol/L (3.5-5.1)
[2017-04-19 07:35] VITALS: BP 136/86; PULSE 80; TEMP 37; O2SAT 92
[2017-04-19] MEDS: ACETAMINOPHEN 325 MG TAB PO PRN (07:56)
[2017-04-19] MEDS: ASPIRIN 81 MG ECTAB PO SCH (07:57)
[2017-04-19] MEDS: CALCIUM 600MG + VIT D 400 IU TAB PO SCH (07:58)
[2017-04-19] MEDS: MULTIVITAMIN TAB PO SCH (07:58)
[2017-04-19] MEDS ORDERED: ENOXAPARIN 1 MG/KG SQ SCH (09:15)
--- NOTE | 2017-04-19 10:08 | Hospitalist Progress Note ---
Hospitalist Progress Note Date of Service Apr 19, 2017. (Yana Mak .DAISY) Subjective Pt evaluation today including: conversation w/ patient, physical exam, chart review, lab review, review of studies, review of inpatient medication list Ms. Ashford is feeling better today. She is off of oxygen and has not had dyspnea at rest or while moving around the room. She occasionally has very mild pain under her right breast. ROS Constitutional: no chills, aches, sweats or fever Respiratory: no sob,cough, sputum, or wheezing Cardiac: no chest pain, palpitations, edema, orthopnea or lightheadedness GI: no abdominal pain, nausea, vomiting, diarrhea or constipation : no dysuria or hesitancy Extremities: no joint pain or weakness Skin: no rash All Other Systems: Reviewed and Negative (Yana Mak .DAISY) Medications Medications Administered Medications (Trade) Dose Ordered Sig/Mallory Route Start Time Stop Time Status Last Admin Dose Admin Nitroglycerin (Nitroglycerin 2% Oint) 0.5 inch NOW ONCE EXT 04/17/17 10:45 04/17/17 10:46 DC 04/17/17 10:56 0.5 INCH Heparin Sodium/ Dextrose (Heparin 25,000 Unit/500ml D5W) 25,000 unit STK-MED ONCE .ROUTE 04/17/17 12:22 04/17/17 12:23 DC 04/17/17 12:22 25,000 UNIT Heparin Sodium (Porcine) (Heparin Sq 5000 Unit/0.5ml) 10,000 unit STK-MED ONCE .ROUTE 04/17/17 12:23 04/17/17 12:24 DC 04/17/17 12:30 6,000 UNIT Calcium/Vitamin D (Caltrate Plus Tab) 1 tab DAILY PO 04/18/17 09:00 05/18/17 08:59 04/19/17 07:58 1 TAB Levothyroxine Sodium (Synthroid Tab) 25 mcg DAILYBB PO 04/18/17 06:00 05/18/17 06:59 04/19/17 05:27 25 MCG Multivitamins (Multivitamin Tab) 1 tab DAILY PO 04/18/17 09:00 05/18/17 08:59 04/19/17 07:58 1 TAB Aspirin (Ecotrin Tab) 81 mg QAM PO 04/18/17 09:00 05/18/17 08:59 04/19/17 07:57 81 MG Heparin Sodium/ Dextrose 500 ml @ 23 mls/hr [id number] PRN IV 04/17/17 17:15 04/19/17 09:15 DC 04/19/17 05:27 23 MLS/HR Acetaminophen (Tylenol Tab) 650 mg Q4H PRN PO 04/17/17 20:30 05/17/17 20:29 04/19/17 07:56 650 MG Sodium Chloride 1,000 ml @ 75 mls/hr [id number] IV 04/18/17 14:15 04/19/17 09:15 DC 04/19/17 03:17 75 MLS/HR Warfarin Sodium (Coumadin Tab) 5 mg NOW ONCE PO 04/18/17 18:45 04/18/17 18:46 DC 04/18/17 19:42 5 MG (Yana Mak CRNP) Objective Vital Signs Date Time Temp Pulse Resp B/P (MAP) Pulse Ox O2 Delivery O2 Flow Rate FiO2 04/19/17 07:35 37.0 80 20 136/86 (103) 92 Room Air 04/19/17 04:00 36.7 89 18 146/87 (106) 91 Room Air 04/19/17 04:00 Room Air 04/18/17 23:59 Room Air 04/18/17 23:47 37.2 85 19 133/85 (101) 94 Room Air 04/18/17 20:00 94 Room Air 04/18/17 18:57 37.0 95 18 141/90 (107) 92 Room Air 04/18/17 16:00 93 Room Air 04/18/17 15:26 37.6 86 19 134/89 (104) 92 Room Air 04/18/17 12:00 Nasal Cannula 2.0 04/18/17 10:46 37.3 73 18 144/83 (103) 95 Room Air (Yana Mak CRNP) Physical Exam Notes: General: no distress Eyes: normal inspection, PERLL Respiratory: chest non tender, clear to auscultation, normal breath sounds, no respiratory distress, no accessory muscle use Cardiac: regular rate and rhythm, no rub or gallop, no murmur, no edema, no jvd GI/: active bowel sounds, no abd pain or tenderness, soft, non distended Extremities: normal range of motion, normal strength, non tender Neuro/Psych: alert and oriented x 3, normal mood and affect Skin: normal color, dry (Yana Mak, DAISY) Laboratory Results Last 24 Hours Test 04/18/17 14:09 04/19/17 05:22 Activated Partial Thromboplast Time 53.9 SECONDS 58.3 SECONDS Partial Thromboplastin Ratio 2.1 2.2 White Blood Count 11.03 K/uL Red Blood Count 4.09 M/uL Hemoglobin 13.0 g/dL Hematocrit 38.8 % Mean Corpuscular Volume 94.9 fL Mean Corpuscular Hemoglobin 31.8 pg Mean Corpuscular Hemoglobin Concent 33.5 g/dl RDW Standard Deviation 54.0 fL RDW Coefficient of Variation 15.7 % Platelet Count 214 K/uL Mean Platelet Volume 9.2 fL Sodium Level 143 mmol/L Potassium Level 3.7 mmol/L Chloride Level 112 mmol/L Carbon Dioxide Level 23 mmol/L Anion Gap 8.0 mmol/L Blood Urea Nitrogen 12 mg/dl Creatinine 0.64 mg/dl Est Creatinine Clear Calc Drug Dose 80.2 ml/min Estimated GFR () 98.4 Estimated GFR (Non- 84.9 BUN/Creatinine Ratio 18.5 Random Glucose 104 mg/dl Calcium Level 8.2 mg/dl (Yana Mak CRNP) Assessment and Plan 81F with PMHX of hypothyroidism with no recent surgeries p/w chest pain and was found to have a saddle embolis on CT Scan. Pt was started on a Heparin Drip and admitted to [facility]. VS are stable and cardiopulmonary exam is grossly normal. Pt is at present on 2LNC. Aside from a FamHx of mother having blood clots and an IVC filter in place, and son with post surgery DVTs, this appears to be an unprovoked DVT. Pt has had a recent colonoscopy and mammogram, is a non smoker and has no systemic complaints except for recent chills. Saddle Embolus: - Echo - Heparin infusion discontinued - changed to lovenox bridge with coumadin , lovenox teaching ordered - titrate O2 - patient on room air - transfer of telemetry to medical floor - NSR on the monitor, Echo did not show right heart strain - outpatient hypercoagulable studies Chest Pain: - Chest pain has resolved, likely pleuritic 2/2 to PE. - EKG showed no acute pathology. - Trop was 0.04 - Continue ASA 81mg daily. Seasonal allergies - continue cetirizine Hypothyroidism: - continue home Synthroid dose of 25mcg daily. DVT prophylaxis - enoxaparin Full Code - Pt however does not want prolonged mechanical ventilation for an irreversible neurological process. (Yana Mak ., DAISY) Attending Attestation: Pt seen/examined, chart reviewed, care plan d/w CERTIFIED REGISTERED DENTAL ASSISTANTGRACE Mak. I agree w/ the soto components of her documentation. Pt w/o dyspnea or other complaints today. Feels well. VSS afebrile o2 sats wnl in RA gen - nad heart - RRR, s1, s2, no murmur lungs - CTA b/l abd - soft, NT ext - left leg is larger than right leg, no edema, pulses 2+ b/l A/P: extensive VTE event with numerous right-sided PEs, saddle embolus, the extensive LLE DVT. RLE neg for DVT. likely had embolic events over 2-week period hence her stability. risk factors - probable genetic factor, possible travel (to [place]); cannot exclude underlying malignancy (occult). has been transitioned to lovenox 1mg/kg SC q12h and daily coumadin 5mg. lovenox teaching. daily INR. coumadin clinic follow-up after d/c. suspect she may need lifelong coumadin. anticipate d/c tomorrow if she is comfortable with lovenox injections updated they confirm they can afford $73 copay for the 7-day supply of lovenox Darrel PACHECO MD (Vishal Pacheco MD)
[2017-04-19] MEDS: ENOXAPARIN 100 MG/1ML SYR SQ SCH ×2 (11:09→21:49)
[2017-04-19 11:33] VITALS: BP 129/70; PULSE 88; TEMP 36.9; O2SAT 97
[2017-04-19 12:05] VITALS: BP 129/70; PULSE 88; TEMP 36.9; O2SAT 97
[2017-04-19 15:42] VITALS: BP 150/82; PULSE 76; TEMP 36.6; O2SAT 95
[2017-04-19 16:00] VITALS: O2SAT 95
[2017-04-19] MEDS ORDERED: WARFARIN SOD 5 MG TAB PO SCH (16:00)
[2017-04-20 00:47] VITALS: BP 133/83; PULSE 89; TEMP 37.2; O2SAT 92
[2017-04-20] MEDS: LEVOTHYROXINE 25 MCG TAB PO SCH (05:43)
[2017-04-20 06:00] LABS: HEMATOCRIT 38.6 % (37-47); MEAN CELL VOLUME 94.8 fL (80-100); MEAN CORPUSCULAR HEMOGLOBIN 31.2 pg (25-34); MEAN CORPUSCULAR HGB CONC 32.9 g/dl (32-36); PLATELET COUNT 230 K/uL (130-400); RED BLOOD COUNT 4.07 M/uL (4.2-5.4); WHITE BLOOD COUNT 10.35 K/uL (4.8-10.8)
[2017-04-20 06:05] LABS: PROTHROMBIN TIME (PATIENT) 10.9 SECONDS (9.0-12.0)
[2017-04-20 06:33] LABS: BUN/CREATININE RATIO 21.5 (10-20); CALCIUM 8.6 mg/dl (8.5-10.1); CREATININE 0.62 mg/dl (0.60-1.20)
[2017-04-20 07:32] VITALS: BP 137/87; PULSE 80; TEMP 36.7; O2SAT 94
[2017-04-20 08:00] VITALS: O2SAT 94
[2017-04-20] MEDS: MULTIVITAMIN TAB PO SCH (08:04)
[2017-04-20] MEDS: CALCIUM 600MG + VIT D 400 IU TAB PO SCH (08:04)
[2017-04-20] MEDS: ASPIRIN 81 MG ECTAB PO SCH (08:04)
[2017-04-20] MEDS: ENOXAPARIN 100 MG/1ML SYR SQ SCH (08:05)
[2017-04-20] MEDS ORDERED: SODIUM CHLORIDE 0.65% NA SOLN 45 ML (OCEAN) ONE (08:09)
[2017-04-20] MEDS ORDERED: NURSING DECISION MEDICATION ORDER SCH (08:15)
[2017-04-20] MEDS ORDERED: SODIUM CHLORIDE 0.65% NA SOLN 45 ML (OCEAN) PRN (08:30)
[2017-04-20] MEDS ORDERED: WARFARIN SOD 5 MG TAB PO ONE ×2 (09:30→10:00)
[2017-04-20] MEDS ORDERED: LVNIS100 SQ ×2 (10:21→10:36)
[2017-04-20] MEDS ORDERED: CMD5 PO (10:21)
--- NOTE | 2017-04-20 10:35 | Discharge Instructions ---
Discharge Instructions Date of Service Apr 20, 2017. Admission Reason for Admission: Saddle Embolism Of Pulmonary Artery Discharge Discharge Diagnosis / Problem: (1) Saddle embolism of pulmonary artery VTE Date & Time Date of VTE Diagnosis: Apr 17, 2017 Time of VTE Diagnosis: 11:22 Discharge Goals Goal(s): Improve disease control Activity Recommendations Activity Limitations: resume your previous activity . Instructions / Follow-Up Instructions / Follow-Up Please come to the hospital Sunday and Sunday for INR blood work, Dr. Pacheco will monitor your blood work and change Coumadin dosing if necessary Medication Instructions: * Warfarin is a medicine prescribed to prevent blood clots * Warfarin will thin your blood and help prevent new clots * Take your medications exactly as directed * Never skip a dose. Never take a double dose. If you miss a dose, take it as soon as you remember * It is important for your doctor to monitor your prothrombin time (PT). This is a lab test * Keep your appointment for lab tests Risk of Adverse Drug Reactions and Interactions: * Warfarin increases your risk of bleeding * The food you eat and other medications you take can affect how Warfarin works in your body * Ask your doctor about daily aspirin therapy * It is very important to talk with your doctor about all of the other medicines , antibiotics, vitamins or herbal products that you are taking * All of your medication must be approved by your doctor, including new medicines, as well as medicines you have taken before you started taking Warfarin Diet: * In order for Warfarin to work properly, it is important to keep your intake of Vitamin K as consistent as possible * You should avoid any sudden change in Vitamin K intake * Report any significant changes in your diet or weight to your doctor Call your Primary Care doctor if you experience any of the following: * Swelling or Pain in your leg * Sudden, continuous pain deep in a muscle * Pain that worsens when you are active or when you stand still for a long time * Chest Pain * Sudden Shortness of Breath * Rapid or pounding heart beat * Fainting * Dizziness * Cough with blood or bloody sputum * Sweating more than normal * Bruises * Heavy or uncontrolled bleeding * Blood in your urine, stool or vomit * Black or tarry stools Caring for Your Self at Home: * Avoid sitting, standing or lying down for long periods without moving your legs and feet * When traveling by car, stop to get out and move around at least once every 3 hours * On long airplane, train or bus rides, get up and move around when possible * If you can't get up, wiggle your toes and tighten your calves to keep your blood moving Follow Up: It is important for you to keep your follow up appointments with your medical provider. Current Hospital Diet Patient's current hospital diet: Regular Diet Discharge Diet Recommended Diet: Regular Diet Procedures Procedures Performed: Chest Xray Chest CT Lower extremity venous doppler Pending Studies Studies pending at discharge: no Medical Emergencies . Who to Call and When: Medical Emergencies: If at any time you feel your situation is an emergency, please call 911 immediately. . Non-Emergent Contact Non-Emergency issues call your: Primary Care Provider Call Non-Emergent contact if: you have any medication questions . Past History Medical & Surgical History: (1) Saddle embolus . "Provider Documentation" section prepared by Yana Mak. . VTE Core Measure Inpt VTE Proph given/why not?: Enoxaparin (Lovenox)SQ Reason no anticoag overlap I/P: Treatment provided - N/A Reason no anticoag overlap @DC: Treatment provided - N/A
[2017-04-20 11:14] VITALS: BP 137/87; PULSE 80; TEMP 36.7; O2SAT 94
--- NOTE | 2017-04-20 15:16 | Discharge Summary ---
Discharge Summary Date of Service Apr 20, 2017. (Yana Mak CRNP) Discharge Summary Admission Date: Apr 17, 2017 at 15:01 Discharge Date: Apr 20, 2017 Discharge Disposition: Home Principal Diagnosis: saddle embolism Problems/Secondary Diagnoses: Chest pain Hypothyroidism Seasonal allergies Immunizations: Have You Had Influenza Vaccine: No Influenza Vaccine Date: Apr 21, 2012 History of Tetanus Vaccine?: Yes Tetanus Immunization Date: Apr 18, 2010 History of Pneumococcal: Yes Pneumococcal Date: Apr 18, 2005 History of Hepatitis B Vaccine: No Procedures: Chest CTA IMPRESSION: 1. Acute saddle pulmonary embolism. This finding was called to Dr. Tatum at 10:49 AM. 2. Trace bilateral pleural effusions Venous doppler IMPRESSION: Acute deep venous thrombosis in the left leg from common femoral vein through the small venous structures of the lower leg CXR IMPRESSION: No active disease in the chest. (Yana Mak CRNP) Problems/Secondary Diagnoses: LLE DVT Procedures: Echocardiogram: * -- Conclusions -- * 1. Normal left ventricular size and systolic function. EF 55-60%. No regional wall motion abnormalities. Mild concentric left ventricular hypertrophy. Type 1 diastolic dysfunction. * 2. No significant valvular abnormalities visualized. * 3. Normal estimated right ventricular systolic pressure. * 4. No prior study available for comparison. (Vishal Pacheco MD) Medication Reconciliation New Medications: Enoxaparin (Enoxaparin Sodium) 100 Mg/Ml Inj 90 MG SQ Q12 for 7 Days, #14 DOSE Warfarin Sod (Coumadin) 5 Mg Tab 5 MG PO DAILY@16 for 7 Days, #7 TAB Continued Medications: Acetaminophen (Tylenol) 325 Mg Tab 325 MG PO, TAB Calcium Carbonate (Caltrate 600) 1,500 Mg Tab Calcium/Vitamin D (Os-Aj 500 Plus D) Tab 1 TAB PO DAILY, TAB Cetirizine (Zyrtec) 10 Mg Tab 5-10 MG PO HS PRN for PRN, TAB Levothyroxine Sodium (Levothyroxine Sodium) 25 Mcg Tab 1 TAB PO DAILY for 30 Days, #30 TAB 5 Refills Multiple Vitamin (Multivitamin) 1 Tab Tab 1 TAB PO DAILY for 90 Days, #90 TAB 3 Refills Nutritional Supplements (Antioxidant Formula) 1 Cap Cap 1 CAP PO DAILY Discontinued Medications: Aspirin (Aspirin) 325 Mg Ectab 325 MG PO BID for 28 Days Celecoxib (Celebrex) 200 Mg Cap 200 MG PO BID, #60 CAP Discharge Exam ROS Constitutional: no chills, aches, sweats or fever Respiratory: no sob,cough, sputum, or wheezing Cardiac: no chest pain, palpitations, edema, orthopnea or lightheadedness GI: no abdominal pain, nausea, vomiting, diarrhea or constipation : no dysuria or hesitancy Extremities: no joint pain or weakness Skin: no rash PE General: no distress Eyes: normal inspection, PERLL Respiratory: chest non tender, clear to auscultation, normal breath sounds, no respiratory distress, no accessory muscle use Cardiac: regular rate and rhythm, no rub or gallop, no murmur, no edema, no jvd GI/: active bowel sounds, no abd pain or tenderness, soft, non distended Extremities: normal range of motion, normal strength, non tender Neuro/Psych: alert and oriented x 3, normal mood and affect Skin: normal color, dry (Yana Mak, DAISY) Hospital Course 81F with PMHX of hypothyroidism with no recent surgeries p/w chest pain and was found to have a saddle embolis on CT Scan. Pt was started on a Heparin Drip and admitted to tele. VS were stable throughout admission and patient remained pleasant and in good spirits. Aside from a FamHx of mother having blood clots and an IVC filter in place, and two sons with post surgery DVTs in their 40s, this appears to be an unprovoked DVT. Pt has had a recent colonoscopy and mammogram and is a non smoker. Saddle Embolus: - Echo - no indication of right heart strain - Heparin infusion then she was changed to Lovenox bridge with Coumadin 04/19/17 , Lovenox teaching ordered - will discharge with Lovenox 90mg bid and Coumadin at 5 mg/day. She was given an extra 5mg 04/20 for 10mg total as her INR was only 1. She will return to the hospital over the weekend for blood draws and will manage her Coumadin for the weekend. Case management is arranging for her to see the Coumadin clinic. - titrate O2 - she did not require supplemental oxygen since 04/17 - would recommend outpatient hypercoagulable studies Chest Pain: - Chest pain has resolved, likely pleuritic 2/2 to PE. - EKG showed no acute pathology. - Trop was 0.04 - Continue ASA 81mg daily. Seasonal allergies - continue cetirizine Hypothyroidism: - continue home Synthroid dose of 25mcg daily. Total Time Spent: Less than 30 minutes This includes examination of the patient, discharge planning, medication reconciliation, and communication with other providers. (Yana Mak CRNP) Attending Attestation & Discharge Note: Pt seen/examined, chart reviewed, discharge care plan d/w DAISY Mak. I agree w/ the soto components of her discharge summary. Pleasant 81yo female who presented with 2 weeks of back pain, pleuritic type chest pain, and worsening dyspnea. CTA chest at admission showed saddle embolism and significant right-sided PEs. She reported a strong family history of VTE (mother, son, and daughter) along with recent travel about 2 weeks prior to her symptoms starting. However, the travel was a very short distance by car. Thus, I would categorize this event as unprovoked. Treated with heparin infusion & coumadin; ultimately transitioned to lovenox 1mg /kg BID and coumadin. NC O2 was easily weaned off. Echo did not demonstrate any RV failure. B/l LE venous duplex study showed significant DVT in the left leg. Hypercoagulable workup was deferred while hospitalized. Coumadin dosing was as follows - 04/18 and 04/19 - 5mg each day 04/20 - 10mg Discharge INR was 1. She will return to [facility] on 04/21 and 04/22 for INR checks. Arrangements have been made to establish care with the Coumadin Clinic at [facility]. She may need lifelong coumadin. Discharge exam: gen - nad neck - no JVD heart - RRR, s1, s2 lungs - CTA b/l abd - soft, NT ext - left leg larger than right leg with 1+ edema on left, pulses 2+ b/l We had a lengthy discussion at discharge about whether to undergo additional occult malignancy work-up in the near future. Would defer such to her PCP. Vishal Pacheco MD Total Time Spent: Greater than 30 minutes (Vishal Pacheco MD) Discharge Instructions Please refer to the electronic Patient Visit Report (Discharge Instructions) for additional information. (Yana Mak CRNP) Follow-Up She will have her INR drawn Sunday and Sunday at the hospital Dr. Beck, on SundayApril 23 at 8:30 am. [facility] Coag Clinic on SundayMay 01 at 11:00 am. Primary care to monitor INR's until coag clinic appointment (Yana Mak CRNP) Additional Copies To Elton Horton M.D.; Mary Johnson M.D., PHD; Meryl Beck M.D.
[2017-04-26] MEDS ORDERED: WARF-246 PO (12:03)
[2017-04-26] MEDS ORDERED: ENOX100I PO (12:03)
[2017-04-26] MEDS ORDERED: LEVO50TA6 PO (12:03)
== END 2017-04-20 12:15 | disposition home or self-care (01) | DRG 176 ==
LOC: C.EDB 10:17 → C.2T 15:01 → ENRESERV 15:04 → CANRESERV 15:04 → ENRESERV 15:10 → C.4E 04-19 10:02 → ENRESERV 04-19 10:08
PROVIDERS: ADMIT Family Medicine; ATTEND Internal Medicine
DX: I26.92 Saddle embolus of pulmonary artery without acute cor pulmonale (principal); E03.9 Hypothyroidism, unspecified; Z96.653 Presence of artificial knee joint, bilateral; Z79.82 Long term (current) use of aspirin

== ENCOUNTER → 2017-08-02 | Outpatient (CLI) | payer OTHER, MEDICARE ==
[~2017-08-02] MED LIST changes: +ACET-1311 PO; +AMOX500C3 PO; -ASPEC325 PO; +CALC500C70 PO; -CALCTAB5 PO; -CLB200 PO; -CLC100 PO; -CLTP PO; -DIPH25CA37; -HYDR-5688 PO; -LEVO-217 PO; +LEVO50TA6 PO; -NUTRCAP PO; -OXYSR10 PO; +WARF-246 PO; +WARF5TAB7 PO
--- NOTE | 2017-08-02 15:10 | MAMMOGRAPHY REPORT ---
BILATERAL DIGITAL SCREENING MAMMOGRAM TOMOSYNTHESIS WITH CAD: 08/02/2017 CLINICAL HISTORY: Routine screening. Patient has no complaints. TECHNIQUE: Breast tomosynthesis in addition to standard 2D mammography was performed. Current study was also evaluated with a Computer Aided Detection (CAD) system. COMPARISON: Comparison is made to exams dated: 07/31/2016 mammogram, 07/28/2015 mammogram, 07/31/2014 u ltrasound, 07/31/2014 mammogram, 07/27/2014 mammogram, and 07/21/2013 mammogram - [facility] nter. BREAST COMPOSITION: There are scattered areas of fibroglandular density in both breasts. FINDINGS: No suspicious masses, calcifications, or areas of architectural distortion are noted in ei ther breast. There has been no significant interval change compared to prior exams. Scattered bilate ral benign appearing calcifications are not significantly changed. Asymmetry seen within the left brito perior breast on the MLO view is stable compared to prior exams and has the appearance of normal fibr oglandular tissue on the tomosynthesis images. IMPRESSION: ACR BI-RADS CATEGORY 2: BENIGN There is no mammographic evidence of malignancy. A 1 year screening mammogram is recommended. The pa tient will receive written notification of the results. Approximately 10% of breast cancers are not detected with mammography. A negative mammographic report should not delay biopsy if a clinically suggestive mass is present. Lucy Malloy M.D. /:08/02/2017 13:39:11 Ice Seller: Maryanne LARAR, M, [facility] letter sent: Normal 1/2 BI-RADS Code: ACR BI-RADS Category 2: Benign
== END | disposition home or self-care (01) ==
LOC: C.MAMM 12:47
PROVIDERS: ATTEND Family Medicine
DX: Z12.31 Encounter for screening mammogram for malignant neoplasm of breast (principal)

== ENCOUNTER → 2017-10-15 | Outpatient (CLI) | payer OTHER, MEDICARE ==
--- NOTE | 2017-10-15 08:31 | DIAGNOSTIC IMAGING REPORT ---
ABDOMINAL ULTRASOUND, RIGHT UPPER QUADRANT HISTORY: Right upper quadrant abdominal pain. COMPARISON: Renal ultrasound June 02, 2008. FINDINGS: Several small hepatic cysts are noted. Liver morphology is normal. Pancreatic body is normal. Head and tail are partially obscured. The gallbladder is normal. No gallstones are identified. There is no gallbladder wall thickening. Exam is mildly compromised by motion artifact. No biliary ductal dilatation is present. Anechoic structures within the right renal sinus are similar to exam of June 02, 2008 and favor parapelvic cysts. IMPRESSION: 1. No gallstones or biliary ductal dilatation. 2. Several hepatic cysts. 3. 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 Electronically signed by: Sharad Hooks M.D. 10/15/2017 8:29 AM Dictated Date/Time: 10/15/2017 8:26 AM
== END ==
LOC: C.ULTR 07:50
PROVIDERS: ATTEND Family Medicine
DX: R10.11 Right upper quadrant pain (principal); K76.89 Other specified diseases of liver